=== PATIENT | female | born 1975 | race Caucasian/White ===

== ENCOUNTER → 2017-04-24 | Outpatient (CLI) | payer OTHER ==
[~2017-04-24] MED LIST: ACYC400 PO; AMIT25 PO; ANDROGEL1.25 GM TD; Crutch1 EACH MISC; DHEA PO; HYDACE10B PO; IRON150C PO; PREG75 PO; RXHYDACE PO; Zofran Odt4 MG PO
[2017-04-26 12:38] LABS: HPV Genotype 16 Not Detected (NOTDET); HPV Genotype 18 Not Detected (NOTDET)
[2017-04-30 18:58] LABS: HPV High Risk Other Not Detected (NOTDET)
== END | disposition home or self-care (01) ==
LOC: LAB 16:33
PROVIDERS: Obstetrics & Gynecology
DX: Z01.419 Encounter for gynecological examination (general) (routine) without abnormal findings (principal)
CPT/HCPCS: 87624; G0123

== ENCOUNTER 2017-08-12 05:52 | Day surgery (SDC) | payer OTHER ==
[~2017-08-12] VITALS: Ht 165.1 cm; Wt 79.8 kg
[~2017-08-12 05:52] MED LIST changes: -ANDROGEL1.25 GM TD; -DHEA PO; -IRON150C PO; -Zofran Odt4 MG PO
== END 2017-08-12 22:47 | disposition home or self-care (01) ==
LOC: ORSCMMR 05:52 → ORD 10:00 → ORSCMMR 10:00 → ORD 11:30 → ORSCMMR 22:47
PROVIDERS: Obstetrics & Gynecology
PROC: 0TSD0ZZ Reposition Urethra, Open Approach (ICD-10-PCS; principal; 2017-08-12 07:30)
DX: N39.3 Stress incontinence (female) (male) (principal)
CPT/HCPCS: C1771; J0171; J1100; J1885; J1956; J2250; J2405; J3010; J7120

== ENCOUNTER 2018-01-25 22:22 | Emergency (ER) | payer OTHER ==
[~2018-01-25] VITALS: Ht 165.1 cm; Wt 77.1 kg
[2018-01-25] MEDS ORDERED: DHEA PO (22:32)
[2018-01-25] MEDS ORDERED: IRON150C PO (22:32)
[2018-01-25] MEDS ORDERED: ANDROGEL1.25 GM TD (22:33)
[2018-01-25 22:58] LABS: BASOPHILS ABSOLUTE AUTO 0.06 K/mm3 (0.00-0.23); BASOPHILS PERCENT AUTO 1 % (0-2); EOSINOPHILS ABSOLUTE AUTO 0.43 K/mm3 (0.00-0.68); EOSINOPHILS PERCENT AUTO 4 % (0-6); Hematocrit 41.4 % (33.0-51.0); Hemoglobin 13.9 g/dL (11.5-16.0); IMMATURE GRAN ABSOLUTE AUTO 0.02 K/mm3 (0.00-0.10); IMMATURE GRAN PERCENT AUTO 0 % (0-1); LYMPHOCYTES ABSOLUTE AUTO 3.08 K/mm3 (0.84-5.20); LYMPHOCYTES PERCENT AUTO 31 % (21-46); MONOCYTES ABSOLUTE AUTO 0.85 K/mm3 (0.16-1.47); MONOCYTES PERCENT AUTO 9 % (4-13); Mean Corpuscular HGB 30.7 pg (26.0-34.0); Mean Corpuscular HGB Conc 33.6 g/dL (31.5-36.5); Mean Corpuscular Volume 91 fL (80-100); Mean Platelet Volume 10.3 fL (9.1-12.4); NEUTROPHILS ABSOLUTE AUTO 5.39 K/mm3 (1.96-9.15); NEUTROPHILS PERCENT AUTO 55 % (41-73); Platelet Count 222 K/mm3 (150-400); RDW Coefficient Variation 12.3 % (11.7-14.2); Red Blood Cell Count 4.53 M/mm3 (3.80-5.20); White Blood Cell Count 9.83 K/mm3 (4.00-11.30)
[2018-01-25 23:13] LABS: Alanine Aminotransfer (ALT/SGP 28 U/L (12-78); Albumin, Blood 3.6 g/dL (3.4-5.0); Alk Phos 71 U/L (50-136); Anion Gap 7 mmol/L (6-16); Aspartate Aminotrans (AST/SGOT 20 U/L (12-37); Bilirubin, Total 0.4 mg/dL (0.1-1.0); Blood Urea Nitrogen 20 mg/dL (8-24); Bun/Creatinine Ratio 22.1 (12.0-20.0); CO2, Blood 25 mmol/L (21-32); Calcium, Blood 8.5 mg/dL (8.5-10.1); Chloride, Blood 110 mmol/L (98-108); Globulin, Blood 3.5 g/dL (2.2-4.0); Glomerular Filtration Rate >60 (60-); Glucose, Blood 122 mg/dL (70-99); Potassium, Blood 3.8 mmol/L (3.5-5.5); Sodium, Blood 142 mmol/L (136-145); Total Protein, Blood 7.1 g/dL (6.4-8.2); Troponin I <0.015 ng/mL (0.000-0.040)
[2018-01-25 23:20] LABS: Source, Urine Clean Catch
[2018-01-25 23:27] LABS: Bilirubin, Urine Neg (Neg); Blood, Urine Neg (Neg); Glucose Qualitative, Urine Neg (Neg); Ketones, Urine 1+ (Neg); Leukocyte Esterase, Urine 1+ (Neg); Nitrite, Urine Neg (Neg); Protein, Urine 1+ (Neg); Specific Gravity, Urine 1.025 (1.003-1.022); Urobilinogen, Urine 1+ (Normal)
[2018-01-25 23:28] LABS: Appearance, Urine Hazy (Clear); Color, Urine Yellow (P-Yellow)
[2018-01-25 23:34] LABS: Bacteria Mod /hpf; Red Blood Cells, Urine Not Seen /hpf (0-2); Squamous Epithelial Cells Many /hpf (Few)
[2018-01-25 23:40] LABS: U Amphetamine Screen DETECTED; U Barbituate Screen Not Detected; U Benzodiazapine Screen Not Detected; U Buprenorphine Screen Not Detected; U Cannabinoids Screen Not Detected; U Cocaine Screen Not Detected; U Methadone Screen Not Detected; U Methamphetamine Screen DETECTED; U Opiates Screen Not Detected; U Oxycodone Screen Not Detected; U Phencyclidine Screen Not Detected; U Propoxyphene Screen Not Detected
[2018-01-25 23:48] LABS: Magnesium, Blood 2.1 mg/dL (1.6-2.4)
[2018-01-25 23:49] LABS: Thyroid Stimulating Hormone 2.6 uIU/mL (0.360-4.800)
[2018-01-26] MEDS ORDERED: Zofran Odt4 MG PO (00:05)
== END 2018-01-26 00:31 | disposition home or self-care (01) ==
LOC: ER 22:22
PROVIDERS: Emergency Medicine
DX: R07.89 Other chest pain (principal); R00.2 Palpitations; F15.90 Other stimulant use, unspecified, uncomplicated; Z79.899 Other long term (current) drug therapy
CPT/HCPCS: 36415; 71045; 80053; 81001; 83735; 84443; 84484; 85025; 87086; 93005; 93010; 94640; 96361; 96374; 99284-25; J2405; J7030

== ENCOUNTER → 2019-12-19 | Outpatient (CLI) | payer OTHER ==
[~2019-12-19] MED LIST changes: +ANDROGEL1.25 GM TD; +DHEA PO; +IRON150C PO; +Zofran Odt4 MG PO
== END | disposition home or self-care (01) ==
LOC: LAB SHORT 14:55 → LAB 14:55
DX: N39.0 Urinary tract infection, site not specified (principal)
CPT/HCPCS: 87077; 87086; 87186

== ENCOUNTER 2021-04-13 07:16 | Emergency (ER) | payer OTHER ==
[~2021-04-13] VITALS: Ht 165.1 cm; Wt 81.7 kg
[2021-04-13 08:59] LABS: BASOPHILS ABSOLUTE AUTO 0.04 K/mm3 (0.00-0.23); BASOPHILS PERCENT AUTO 0 % (0-2); EOSINOPHILS ABSOLUTE AUTO 0.31 K/mm3 (0.00-0.68); EOSINOPHILS PERCENT AUTO 3 % (0-6); Hematocrit 42.7 % (33.0-51.0); Hemoglobin 14.6 g/dL (11.5-16.0); IMMATURE GRAN ABSOLUTE AUTO 0.03 K/mm3 (0.00-0.10); IMMATURE GRAN PERCENT AUTO 0 % (0-1); LYMPHOCYTES ABSOLUTE AUTO 1.38 K/mm3 (0.84-5.20); LYMPHOCYTES PERCENT AUTO 12 % (21-46); MONOCYTES ABSOLUTE AUTO 0.94 K/mm3 (0.16-1.47); MONOCYTES PERCENT AUTO 8 % (4-13); Mean Corpuscular HGB 31.4 pg (26.0-34.0); Mean Corpuscular HGB Conc 34.2 g/dL (31.5-36.5); Mean Corpuscular Volume 92 fL (80-100); Mean Platelet Volume 10.5 fL (9.1-12.4); NEUTROPHILS ABSOLUTE AUTO 8.55 K/mm3 (1.96-9.15); NEUTROPHILS PERCENT AUTO 76 % (41-73); Platelet Count 197 K/mm3 (150-400); RDW Coefficient Variation 12.3 % (11.7-14.2); RDW Standard Deviation 42.2 fL (35.1-46.3); Red Blood Cell Count 4.65 M/mm3 (3.80-5.20); White Blood Cell Count 11.25 K/mm3 (4.00-11.30)
[2021-04-13 09:31] LABS: Albumin, Blood 3.2 g/dL (3.4-5.0); Albumin/Globulin Ratio 0.9 (0.8-1.8); Bilirubin, Total 0.4 mg/dL (0.1-1.0); Bun/Creatinine Ratio 18.5 (12.0-20.0); Calcium, Blood 9.5 mg/dL (8.5-10.1); Creatinine, Blood 1.35 mg/dL (0.40-1.00); Globulin, Blood 3.7 g/dL (2.2-4.0); Potassium, Blood 4.3 mmol/L (3.5-5.5); Total Protein, Blood 6.9 g/dL (6.4-8.2)
[2021-04-13 10:07] LABS: Source, Urine Clean Catch
[2021-04-13 10:46] LABS: Bilirubin, Urine Neg (Neg); Blood, Urine Neg (Neg); Glucose Qualitative, Urine Neg (Neg); Ketones, Urine Neg (Neg); Leukocyte Esterase, Urine 1+ (Neg); Nitrite, Urine Neg (Neg); Protein, Urine Neg (Neg); Urobilinogen, Urine NORM (Normal)
[2021-04-13 10:53] LABS: Appearance, Urine Clear (Clear); Bacteria Rare /hpf; Color, Urine Yellow (P-Yellow); Red Blood Cells, Urine Not Seen /hpf (0-2); Squamous Epithelial Cells Rare /hpf (Few); White Blood Cells, Urine 0-2 /hpf (0-5)
[2021-04-13] MEDS ORDERED: Flomax0.4 MG PO (11:22)
[2021-04-13] MEDS ORDERED: Percocet 5-3251 EACH PO (11:22)
[2021-04-13] MEDS ORDERED: IBUP600 PO (11:22)
[2021-04-13] MEDS ORDERED: ONDA4ODT MM (11:22)
== END 2021-04-13 11:35 | disposition home or self-care (01) ==
LOC: ER 07:16
PROVIDERS: Emergency Medicine
DX: N13.2 Hydronephrosis with renal and ureteral calculous obstruction (principal)
CPT/HCPCS: 36415; 74177; 80053; 81001; 81025; 83690; 85025; 87086; 96374; 96375; 99284-25; A9270; J1170; J1885; J2405; J7030; Q9967

== ENCOUNTER 2021-11-23 04:30 | Emergency (ER) | payer OTHER ==
[~2021-11-23] VITALS: Ht 165.1 cm; Wt 81.7 kg
[~2021-11-23 04:30] MED LIST changes: +CEFP200 PO; +Flomax0.4 MG PO; +IBUP600 PO; +ONDA4ODT MM; +Percocet 5-3251 EACH PO
[2021-11-23 06:50] LABS: BASOPHILS ABSOLUTE AUTO 0.01 K/mm3 (0.00-0.23); BASOPHILS PERCENT AUTO 0 % (0-2); EOSINOPHILS ABSOLUTE AUTO 0.02 K/mm3 (0.00-0.68); EOSINOPHILS PERCENT AUTO 0 % (0-6); Hematocrit 44.8 % (33.0-51.0); IMMATURE GRAN ABSOLUTE AUTO 0.03 K/mm3 (0.00-0.10); IMMATURE GRAN PERCENT AUTO 1 % (0-1); LYMPHOCYTES PERCENT AUTO 14 % (21-46); MONOCYTES ABSOLUTE AUTO 0.49 K/mm3 (0.16-1.47); MONOCYTES PERCENT AUTO 7 % (4-13); Mean Corpuscular HGB 30.4 pg (26.0-34.0); Mean Corpuscular HGB Conc 33.5 g/dL (31.5-36.5); Mean Corpuscular Volume 91 fL (80-100); Mean Platelet Volume 10.5 fL (9.1-12.4); NEUTROPHILS PERCENT AUTO 78 % (41-73); Platelet Count 144 K/mm3 (150-400); RDW Coefficient Variation 12.4 % (11.7-14.2); RDW Standard Deviation 40.8 fL (35.1-46.3); Red Blood Cell Count 4.94 M/mm3 (3.80-5.20); White Blood Cell Count 6.65 K/mm3 (4.00-11.30)
[2021-11-23 07:08] LABS: Albumin, Blood 2.4 g/dL (3.4-5.0); Albumin/Globulin Ratio 0.5 (0.8-1.8); Bilirubin, Total 0.4 mg/dL (0.1-1.0); Bun/Creatinine Ratio 9.3 (12.0-20.0); Calcium, Blood 8.6 mg/dL (8.5-10.1); Creatinine, Blood 0.97 mg/dL (0.40-1.00); Globulin, Blood 4.4 g/dL (2.2-4.0); Potassium, Blood 3.8 mmol/L (3.5-5.5); Total Protein, Blood 6.8 g/dL (6.4-8.2)
[2021-11-23 07:47] LABS: Source, Urine Clean Catch
[2021-11-23 07:51] LABS: Appearance, Urine Clear (Clear); Bilirubin, Urine Neg (Neg); Blood, Urine 4+ (Neg); Color, Urine Yellow (P-Yellow); Glucose Qualitative, Urine Neg (Neg); Ketones, Urine Neg (Neg); Leukocyte Esterase, Urine Neg (Neg); Nitrite, Urine Neg (Neg); Protein, Urine 3+ (Neg); Urobilinogen, Urine NORM (Normal)
[2021-11-23 07:58] LABS: Squamous Epithelial Cells Many /hpf (Few)
[2021-11-23 07:59] LABS: Bacteria Few /hpf
[2021-11-23 08:00] LABS: Mucus Mod (0-Heavy); Transitional Epithelial Cells Rare /hpf (0-Rare)
[2021-11-23] MEDS ORDERED: METO5A PO (08:32)
[2021-11-23] MEDS ORDERED: Protonix40 MG PO (08:32)
== END 2021-11-23 08:48 | disposition home or self-care (01) ==
LOC: ER 04:30
PROVIDERS: Emergency Medicine
DX: B34.9 Viral infection, unspecified (principal); Z79.899 Other long term (current) drug therapy
CPT/HCPCS: 36415; 80053; 81001; 85025; 96374; 96375; 99283-25; A9270; J1200; J1885; J2765; J7030

== ENCOUNTER 2022-06-19 14:36 | Emergency (ER) | payer OTHER ==
[~2022-06-19] VITALS: Ht 165.1 cm; Wt 81.7 kg
[~2022-06-19 14:36] MED LIST changes: +Bactrim Ds Tab1 EACH PO; +METO5A PO; +Protonix40 MG PO
[2022-06-19 15:13] LABS: BASOPHILS ABSOLUTE AUTO 0.06 K/mm3 (0.00-0.23); BASOPHILS PERCENT AUTO 1 % (0-2); EOSINOPHILS ABSOLUTE AUTO 0.32 K/mm3 (0.00-0.68); EOSINOPHILS PERCENT AUTO 3 % (0-6); Hematocrit 45.3 % (33.0-51.0); Hemoglobin 15.7 g/dL (11.5-16.0); IMMATURE GRAN ABSOLUTE AUTO 0.03 K/mm3 (0.00-0.10); IMMATURE GRAN PERCENT AUTO 0 % (0-1); LYMPHOCYTES ABSOLUTE AUTO 3.29 K/mm3 (0.84-5.20); LYMPHOCYTES PERCENT AUTO 27 % (21-46); MONOCYTES ABSOLUTE AUTO 0.95 K/mm3 (0.16-1.47); MONOCYTES PERCENT AUTO 8 % (4-13); Mean Corpuscular HGB 31.8 pg (26.0-34.0); Mean Corpuscular HGB Conc 34.7 g/dL (31.5-36.5); Mean Corpuscular Volume 92 fL (80-100); Mean Platelet Volume 10.8 fL (9.1-12.4); NEUTROPHILS ABSOLUTE AUTO 7.55 K/mm3 (1.96-9.15); NEUTROPHILS PERCENT AUTO 62 % (41-73); Platelet Count 185 K/mm3 (150-400); RDW Coefficient Variation 12.9 % (11.7-14.2); Red Blood Cell Count 4.94 M/mm3 (3.80-5.20)
[2022-06-19 15:41] LABS: Albumin, Blood 3.4 g/dL (3.4-5.0); Albumin/Globulin Ratio 0.9 (0.8-1.8); Bilirubin, Total 0.3 mg/dL (0.1-1.0); Bun/Creatinine Ratio 21.7 (12.0-20.0); Calcium, Blood 9.1 mg/dL (8.5-10.1); Creatinine, Blood 0.92 mg/dL (0.40-1.00); Globulin, Blood 3.6 g/dL (2.2-4.0)
[2022-06-19] MEDS ORDERED: Amlodipine Bes2.5 MG PO (20:05)
== END 2022-06-19 20:31 | disposition home or self-care (01) ==
LOC: ER 14:36
PROVIDERS: Student in an Organized Health Care Education/Training Program
DX: I10 Essential (primary) hypertension (principal); R07.89 Other chest pain; Z79.899 Other long term (current) drug therapy
CPT/HCPCS: 36415; 71046; 80053; 84484; 85025; 93005; 93010; 99284-25; A9270

== ENCOUNTER 2022-08-16 04:01 | Observation (INO) | payer OTHER ==
[~2022-08-16] VITALS: Ht 165.1 cm; Wt 81.7 kg
[~2022-08-16 04:01] MED LIST changes: +Amlodipine Bes2.5 MG PO
[2022-08-16 04:29] LABS: Source, Urine Voided
[2022-08-16 04:46] LABS: BASOPHILS ABSOLUTE AUTO 0.06 K/mm3 (0.00-0.23); BASOPHILS PERCENT AUTO 1 % (0-2); EOSINOPHILS ABSOLUTE AUTO 0.24 K/mm3 (0.00-0.68); EOSINOPHILS PERCENT AUTO 2 % (0-6); Hematocrit 45.6 % (33.0-51.0); Hemoglobin 15.6 g/dL (11.5-16.0); IMMATURE GRAN ABSOLUTE AUTO 0.02 K/mm3 (0.00-0.10); IMMATURE GRAN PERCENT AUTO 0 % (0-1); LYMPHOCYTES ABSOLUTE AUTO 3.91 K/mm3 (0.84-5.20); LYMPHOCYTES PERCENT AUTO 38 % (21-46); MONOCYTES ABSOLUTE AUTO 0.75 K/mm3 (0.16-1.47); MONOCYTES PERCENT AUTO 7 % (4-13); Mean Corpuscular HGB 30.6 pg (26.0-34.0); Mean Corpuscular HGB Conc 34.2 g/dL (31.5-36.5); Mean Corpuscular Volume 89 fL (80-100); Mean Platelet Volume 10.2 fL (9.1-12.4); NEUTROPHILS ABSOLUTE AUTO 5.46 K/mm3 (1.96-9.15); NEUTROPHILS PERCENT AUTO 52 % (41-73); Platelet Count 191 K/mm3 (150-400); RDW Coefficient Variation 12.2 % (11.7-14.2); RDW Standard Deviation 40.2 fL (35.1-46.3); White Blood Cell Count 10.44 K/mm3 (4.00-11.30)
[2022-08-16 04:48] LABS: Bilirubin, Urine Neg (Neg); Blood, Urine Neg (Neg); Glucose Qualitative, Urine Neg (Neg); Ketones, Urine Neg (Neg); Leukocyte Esterase, Urine 1+ (Neg); Nitrite, Urine Neg (Neg); Protein, Urine 1+ (Neg); Specific Gravity, Urine 1.025 (1.003-1.022); Urobilinogen, Urine NORM (Normal)
[2022-08-16] MEDS ORDERED: Ventolin/Prove6.7 GM INH (04:49)
[2022-08-16 05:10] LABS: Albumin, Blood 3.4 g/dL (3.4-5.0); Albumin/Globulin Ratio 0.7 (0.8-1.8); Bilirubin, Total 0.5 mg/dL (0.1-1.0); Bun/Creatinine Ratio 24.8 (12.0-20.0); Calcium, Blood 10.1 mg/dL (8.5-10.1); Creatinine, Blood 1.09 mg/dL (0.40-1.00); Globulin, Blood 4.6 g/dL (2.2-4.0); Potassium, Blood 4.1 mmol/L (3.5-5.5)
[2022-08-16 05:10] LABS: Appearance, Urine Hazy (Clear); Color, Urine Yellow (P-Yellow)
[2022-08-16 05:13] LABS: Red Blood Cells, Urine 0-2 /hpf (0-2); Squamous Epithelial Cells Mod /hpf (Few)
[2022-08-16 05:14] LABS: Bacteria Many /hpf
[2022-08-16] MEDS ORDERED: Lisinopril-Hct1 EAC4 PO (10:43)
[2022-08-16 10:45] VITALS: BP 89/72
[2022-08-16 10:55] VITALS: BP 96/74
[2022-08-16 15:49] VITALS: BP 102/75
[2022-08-16 19:08] VITALS: BP 108/90
[2022-08-17 04:37] VITALS: BP 101/63
[2022-08-17 05:32] LABS: BASOPHILS ABSOLUTE AUTO 0.04 K/mm3 (0.00-0.23); BASOPHILS PERCENT AUTO 1 % (0-2); EOSINOPHILS ABSOLUTE AUTO 0.23 K/mm3 (0.00-0.68); EOSINOPHILS PERCENT AUTO 3 % (0-6); Hematocrit 39.9 % (33.0-51.0); Hemoglobin 13.6 g/dL (11.5-16.0); IMMATURE GRAN ABSOLUTE AUTO 0.02 K/mm3 (0.00-0.10); IMMATURE GRAN PERCENT AUTO 0 % (0-1); LYMPHOCYTES PERCENT AUTO 55 % (21-46); MONOCYTES ABSOLUTE AUTO 0.53 K/mm3 (0.16-1.47); MONOCYTES PERCENT AUTO 7 % (4-13); Mean Corpuscular HGB 30.6 pg (26.0-34.0); Mean Corpuscular HGB Conc 34.1 g/dL (31.5-36.5); Mean Corpuscular Volume 90 fL (80-100); NEUTROPHILS ABSOLUTE AUTO 2.82 K/mm3 (1.96-9.15); NEUTROPHILS PERCENT AUTO 35 % (41-73); Platelet Count 162 K/mm3 (150-400); RDW Coefficient Variation 12.3 % (11.7-14.2); RDW Standard Deviation 40.3 fL (35.1-46.3); Red Blood Cell Count 4.44 M/mm3 (3.80-5.20); White Blood Cell Count 8.04 K/mm3 (4.00-11.30)
[2022-08-17 05:54] LABS: Albumin, Blood 2.7 g/dL (3.4-5.0); Albumin/Globulin Ratio 0.8 (0.8-1.8); Bilirubin, Total 0.6 mg/dL (0.1-1.0); Bun/Creatinine Ratio 17.8 (12.0-20.0); Calcium, Blood 8.7 mg/dL (8.5-10.1); Creatinine, Blood 1.01 mg/dL (0.40-1.00); Globulin, Blood 3.4 g/dL (2.2-4.0); Potassium, Blood 4.5 mmol/L (3.5-5.5); Total Protein, Blood 6.1 g/dL (6.4-8.2)
[2022-08-17 07:29] VITALS: BP 91/74
[2022-08-17 10:20] VITALS: BP 97/71
[2022-08-17 14:00] VITALS: BP 99/81
[2022-08-17 17:50] VITALS: BP 118/83
[2022-08-17 19:30] VITALS: BP 94/61
[2022-08-18 04:16] VITALS: BP 99/77
[2022-08-18 05:11] LABS: BASOPHILS ABSOLUTE AUTO 0.04 K/mm3 (0.00-0.23); BASOPHILS PERCENT AUTO 1 % (0-2); EOSINOPHILS ABSOLUTE AUTO 0.22 K/mm3 (0.00-0.68); EOSINOPHILS PERCENT AUTO 3 % (0-6); Hematocrit 40.6 % (33.0-51.0); Hemoglobin 13.9 g/dL (11.5-16.0); IMMATURE GRAN ABSOLUTE AUTO 0.02 K/mm3 (0.00-0.10); IMMATURE GRAN PERCENT AUTO 0 % (0-1); LYMPHOCYTES PERCENT AUTO 51 % (21-46); MONOCYTES ABSOLUTE AUTO 0.65 K/mm3 (0.16-1.47); MONOCYTES PERCENT AUTO 8 % (4-13); Mean Corpuscular HGB 31.4 pg (26.0-34.0); Mean Corpuscular HGB Conc 34.2 g/dL (31.5-36.5); Mean Corpuscular Volume 92 fL (80-100); NEUTROPHILS PERCENT AUTO 38 % (41-73); Platelet Count 150 K/mm3 (150-400); RDW Coefficient Variation 12.3 % (11.7-14.2); RDW Standard Deviation 41.6 fL (35.1-46.3); Red Blood Cell Count 4.42 M/mm3 (3.80-5.20); White Blood Cell Count 8.43 K/mm3 (4.00-11.30)
[2022-08-18 05:40] LABS: Bun/Creatinine Ratio 20.1 (12.0-20.0); Calcium, Blood 8.6 mg/dL (8.5-10.1); Creatinine, Blood 1.34 mg/dL (0.40-1.00); Potassium, Blood 4.6 mmol/L (3.5-5.5)
[2022-08-18 07:25] VITALS: BP 94/78
[2022-08-18 14:08] VITALS: BP 135/83
[2022-08-18] MEDS ORDERED: Acetaminophen325 M1 PO (15:00)
[2022-08-18] MEDS ORDERED: LEVO750 PO (15:01)
[2022-08-18] MEDS ORDERED: VISBIOME 112.51 EACH PO (15:02)
== END 2022-08-18 16:35 | disposition home or self-care (01) ==
LOC: ER 04:01 → SURS 04:02 → ER 09:23 → SURS 10:48 → ER 12:23 → SURS 12:23
PROVIDERS: Emergency Medicine; ADMIT Internal Medicine
DX: K81.0 Acute cholecystitis (principal); R82.71 Bacteriuria; I12.9 Hypertensive chronic kidney disease with stage 1 through stage 4 chronic kidney disease, or unspecified chronic kidney disease; N18.2 Chronic kidney disease, stage 2 (mild); Z87.442 Personal history of urinary calculi; Z79.899 Other long term (current) drug therapy
CPT/HCPCS: 36415; 74177; 76705; 78226; 80048; 80053; 81001; 83690; 84484; 84703; 85025; 87040; 87077; 87086; 87186; 93005; 93010; 94760; 96361; 96374-59; 96375; 96376; 99285-25; A9270; A9537; G0378; J1170; J1956; J2270; J2405; J7030; Q9967

== ENCOUNTER 2022-10-01 17:21 | Emergency (ER) | payer OTHER ==
[~2022-10-01] VITALS: Ht 165.1 cm; Wt 81.7 kg
[~2022-10-01 17:21] MED LIST changes: +Acetaminophen325 M1 PO; +LEVO750 PO; +Lisinopril-Hct1 EAC4 PO; +VISBIOME 112.51 EACH PO; +Ventolin/Prove6.7 GM INH
[2022-10-02 00:54] VITALS: BP 102/64
[2022-10-02] MEDS ORDERED: Prinivil5 MG PO (00:57)
== END 2022-10-02 01:05 | disposition home or self-care (01) ==
LOC: ER 17:21
DX: I11.0 Hypertensive heart disease with heart failure (principal); I50.9 Heart failure, unspecified
CPT/HCPCS: 71260; 84484; 93005; 93010; 96374-59; 99285-25; A9270; J1940; Q9967

== ENCOUNTER 2022-12-30 01:05 | Emergency (ER) | payer OTHER ==
[~2022-12-30] VITALS: Ht 165.1 cm; Wt 77.1 kg
[~2022-12-30 01:05] MED LIST changes: +Prinivil5 MG PO
[2022-12-30] MEDS ORDERED: KLOR-CON 1010 ME9 PO (02:13)
[2022-12-30] MEDS ORDERED: FUROSEMIDE20 MG PO (02:13)
[2022-12-30 05:25] LABS: BASOPHILS ABSOLUTE AUTO 0.06 K/mm3 (0.00-0.23); BASOPHILS PERCENT AUTO 1 % (0-2); EOSINOPHILS ABSOLUTE AUTO 0.42 K/mm3 (0.00-0.68); EOSINOPHILS PERCENT AUTO 5 % (0-6); Hematocrit 42.9 % (33.0-51.0); Hemoglobin 14.8 g/dL (11.5-16.0); IMMATURE GRAN ABSOLUTE AUTO 0.03 K/mm3 (0.00-0.10); IMMATURE GRAN PERCENT AUTO 0 % (0-1); LYMPHOCYTES ABSOLUTE AUTO 4.07 K/mm3 (0.84-5.20); LYMPHOCYTES PERCENT AUTO 45 % (21-46); MONOCYTES ABSOLUTE AUTO 0.68 K/mm3 (0.16-1.47); MONOCYTES PERCENT AUTO 8 % (4-13); Mean Corpuscular HGB 31.8 pg (26.0-34.0); Mean Corpuscular HGB Conc 34.5 g/dL (31.5-36.5); Mean Corpuscular Volume 92 fL (80-100); Mean Platelet Volume 11.1 fL (9.1-12.4); NEUTROPHILS ABSOLUTE AUTO 3.82 K/mm3 (1.96-9.15); NEUTROPHILS PERCENT AUTO 42 % (41-73); Platelet Count 179 K/mm3 (150-400); RDW Coefficient Variation 14.5 % (11.7-14.2); RDW Standard Deviation 48.8 fL (35.1-46.3); Red Blood Cell Count 4.65 M/mm3 (3.80-5.20); White Blood Cell Count 9.08 K/mm3 (4.00-11.30)
[2022-12-30 05:36] LABS: Albumin, Blood 3.3 g/dL (3.4-5.0); Albumin/Globulin Ratio 0.9 (0.8-1.8); Bilirubin, Total 0.3 mg/dL (0.1-1.0); Bun/Creatinine Ratio 21.8 (12.0-20.0); Calcium, Blood 8.9 mg/dL (8.5-10.1); Creatinine, Blood 1.01 mg/dL (0.40-1.00); Globulin, Blood 3.8 g/dL (2.2-4.0); Potassium, Blood 4.3 mmol/L (3.5-5.5); Total Protein, Blood 7.1 g/dL (6.4-8.2)
[2022-12-30 06:02] VITALS: BP 97/61
== END 2022-12-30 06:02 | disposition home or self-care (01) ==
LOC: ER 01:05
PROVIDERS: Student in an Organized Health Care Education/Training Program
DX: R42 Dizziness and giddiness (principal); Z79.899 Other long term (current) drug therapy; I10 Essential (primary) hypertension
CPT/HCPCS: 36415; 71045; 80053; 83880; 85025; 93005; 93010; 99285-25

== ENCOUNTER → 2024-01-28 | Outpatient (CLI) | payer OTHER ==
[~2024-01-28] MED LIST changes: +FURO20 PO; +FUROSEMIDE20 MG PO; +KLOR-CON 1010 ME9 PO; +SERT25 PO
== END ==
LOC: LAB 17:02 → LAB SHORT 17:02
DX: J02.9 Acute pharyngitis, unspecified (principal)
CPT/HCPCS: 87081; 87147

== ENCOUNTER 2024-01-29 15:19 | Emergency (ER) | payer OTHER ==
[~2024-01-29] VITALS: Ht 165.1 cm; Wt 77.1 kg
[2024-01-29 15:25] VITALS: BP 146/114
[2024-01-29 16:19] LABS: BASOPHILS ABSOLUTE AUTO 0.05 K/mm3 (0.00-0.23); BASOPHILS PERCENT AUTO 0 % (0-2); EOSINOPHILS ABSOLUTE AUTO 0.27 K/mm3 (0.00-0.68); EOSINOPHILS PERCENT AUTO 2 % (0-6); Hematocrit 44.1 % (33.0-51.0); Hemoglobin 15.3 g/dL (11.5-16.0); IMMATURE GRAN ABSOLUTE AUTO 0.04 K/mm3 (0.00-0.10); IMMATURE GRAN PERCENT AUTO 0 % (0-1); LYMPHOCYTES ABSOLUTE AUTO 3.56 K/mm3 (0.84-5.20); LYMPHOCYTES PERCENT AUTO 27 % (21-46); MONOCYTES ABSOLUTE AUTO 0.95 K/mm3 (0.16-1.47); MONOCYTES PERCENT AUTO 7 % (4-13); Mean Corpuscular HGB 31.8 pg (26.0-34.0); Mean Corpuscular HGB Conc 34.7 g/dL (31.5-36.5); Mean Corpuscular Volume 92 fL (80-100); Mean Platelet Volume 10.8 fL (9.1-12.4); NEUTROPHILS ABSOLUTE AUTO 8.12 K/mm3 (1.96-9.15); NEUTROPHILS PERCENT AUTO 63 % (41-73); Platelet Count 180 K/mm3 (150-400); RDW Coefficient Variation 12.3 % (11.7-14.2); RDW Standard Deviation 41.1 fL (35.1-46.3); Red Blood Cell Count 4.81 M/mm3 (3.80-5.20); White Blood Cell Count 12.99 K/mm3 (4.00-11.30)
[2024-01-29 16:39] LABS: Albumin, Blood 3.1 g/dL (3.4-5.0); Albumin/Globulin Ratio 0.8 (0.8-1.8); Bilirubin, Total 0.6 mg/dL (0.1-1.0); Bun/Creatinine Ratio 17.9 (12.0-20.0); Calcium, Blood 9.8 mg/dL (8.5-10.1); Creatinine, Blood 1.23 mg/dL (0.40-1.00); Globulin, Blood 3.9 g/dL (2.2-4.0)
== END 2024-01-29 19:54 | disposition left against medical advice (07) ==
LOC: ER 15:19
PROVIDERS: Physician Assistant
DX: R06.02 Shortness of breath (principal); Z53.29 Procedure and treatment not carried out because of patient's decision for other reasons
CPT/HCPCS: 80053; 83690; 83880; 84484; 85025; 93005; 93010; 99282-25

== ENCOUNTER 2024-02-03 23:48 | Emergency (ER) | payer OTHER ==
[~2024-02-03] VITALS: Ht 170.2 cm; Wt 79.4 kg
[2024-02-04 00:31] LABS: BASOPHILS ABSOLUTE AUTO 0.07 K/mm3 (0.00-0.23); BASOPHILS PERCENT AUTO 1 % (0-2); EOSINOPHILS ABSOLUTE AUTO 0.21 K/mm3 (0.00-0.68); EOSINOPHILS PERCENT AUTO 2 % (0-6); Hemoglobin 16.5 g/dL (11.5-16.0); IMMATURE GRAN ABSOLUTE AUTO 0.03 K/mm3 (0.00-0.10); IMMATURE GRAN PERCENT AUTO 0 % (0-1); LYMPHOCYTES ABSOLUTE AUTO 4.44 K/mm3 (0.84-5.20); LYMPHOCYTES PERCENT AUTO 36 % (21-46); MONOCYTES PERCENT AUTO 6 % (4-13); Mean Corpuscular HGB Conc 35.1 g/dL (31.5-36.5); Mean Corpuscular Volume 91 fL (80-100); Mean Platelet Volume 10.7 fL (9.1-12.4); NEUTROPHILS ABSOLUTE AUTO 6.96 K/mm3 (1.96-9.15); NEUTROPHILS PERCENT AUTO 56 % (41-73); Platelet Count 240 K/mm3 (150-400); RDW Coefficient Variation 12.8 % (11.7-14.2); RDW Standard Deviation 42.5 fL (35.1-46.3); Red Blood Cell Count 5.15 M/mm3 (3.80-5.20); White Blood Cell Count 12.41 K/mm3 (4.00-11.30)
[2024-02-04 00:49] LABS: Albumin, Blood 3.6 g/dL (3.4-5.0); Albumin/Globulin Ratio 0.8 (0.8-1.8); Bilirubin, Total 0.6 mg/dL (0.1-1.0); Bun/Creatinine Ratio 23.9 (12.0-20.0); Calcium, Blood 9.6 mg/dL (8.5-10.1); Creatinine, Blood 1.34 mg/dL (0.40-1.00); Globulin, Blood 4.7 g/dL (2.2-4.0); Potassium, Blood 4.8 mmol/L (3.5-5.5); Total Protein, Blood 8.3 g/dL (6.4-8.2)
[2024-02-04 06:47] VITALS: BP 144/116
== END 2024-02-04 06:48 | disposition home or self-care (01) ==
LOC: ER 23:48
PROVIDERS: Physician Assistant
DX: R06.02 Shortness of breath (principal); I11.0 Hypertensive heart disease with heart failure; I50.9 Heart failure, unspecified; Z79.899 Other long term (current) drug therapy
CPT/HCPCS: 71046; 80053; 85025; 85379; 93005; 93010; 99283-25

== ENCOUNTER 2024-04-15 10:28 | Emergency (ER) | payer SELFPAY ==
[~2024-04-15] VITALS: Ht 165.1 cm; Wt 77.1 kg
[2024-04-15 11:45] LABS: BASOPHILS ABSOLUTE AUTO 0.05 K/mm3 (0.00-0.23); BASOPHILS PERCENT AUTO 1 % (0-2); EOSINOPHILS ABSOLUTE AUTO 0.17 K/mm3 (0.00-0.68); EOSINOPHILS PERCENT AUTO 2 % (0-6); Hematocrit 45.7 % (33.0-51.0); Hemoglobin 15.3 g/dL (11.5-16.0); IMMATURE GRAN ABSOLUTE AUTO 0.03 K/mm3 (0.00-0.10); IMMATURE GRAN PERCENT AUTO 0 % (0-1); LYMPHOCYTES PERCENT AUTO 29 % (21-46); MONOCYTES PERCENT AUTO 8 % (4-13); Mean Corpuscular HGB 31.4 pg (26.0-34.0); Mean Corpuscular HGB Conc 33.5 g/dL (31.5-36.5); Mean Corpuscular Volume 94 fL (80-100); NEUTROPHILS ABSOLUTE AUTO 5.08 K/mm3 (1.96-9.15); NEUTROPHILS PERCENT AUTO 60 % (41-73); Platelet Count 191 K/mm3 (150-400); RDW Coefficient Variation 13.2 % (11.7-14.2); RDW Standard Deviation 45.6 fL (35.1-46.3); Red Blood Cell Count 4.87 M/mm3 (3.80-5.20); White Blood Cell Count 8.43 K/mm3 (4.00-11.30)
[2024-04-15 11:58] LABS: Albumin, Blood 3.1 g/dL (3.4-5.0); Albumin/Globulin Ratio 0.8 (0.8-1.8); Bilirubin, Total 1.3 mg/dL (0.1-1.0); Bun/Creatinine Ratio 23.6 (12.0-20.0); Calcium, Blood 9.2 mg/dL (8.5-10.1); Creatinine, Blood 1.1 mg/dL (0.40-1.00); Globulin, Blood 3.8 g/dL (2.2-4.0); Total Protein, Blood 6.9 g/dL (6.4-8.2)
[2024-04-15] MEDS ORDERED: Furosemide 10 MG / ML 2ML Vial IV ONE (12:50)
[2024-04-15] MEDS ORDERED: FURO20 PO (13:01)
[2024-04-15 13:50] VITALS: BP 156/94
== END 2024-04-15 13:51 | disposition home or self-care (01) ==
LOC: ER 10:28
PROVIDERS: Physician Assistant
DX: R06.09 Other forms of dyspnea (principal); I13.0 Hypertensive heart and chronic kidney disease with heart failure and stage 1 through stage 4 chronic kidney disease, or unspecified chronic kidney disease; I50.30 Unspecified diastolic (congestive) heart failure; I27.20 Pulmonary hypertension, unspecified; N18.2 Chronic kidney disease, stage 2 (mild); Z79.899 Other long term (current) drug therapy
CPT/HCPCS: 71046; 80053; 83880; 84484; 85025; 96374; 99285-25; J1940

== ENCOUNTER 2024-04-25 03:24 | Inpatient (IN) | payer SELFPAY ==
[2024-04-25] VITALS (23 sets, daily range): BP systolic 82–135; BP diastolic 55–108
[~2024-04-25] VITALS: Ht 165.1 cm; Wt 80.0 kg
[2024-04-25 04:00] LABS: Hematocrit 47.5 % (33.0-51.0); Mean Corpuscular HGB 30.9 pg (26.0-34.0); Mean Corpuscular HGB Conc 33.7 g/dL (31.5-36.5); Mean Corpuscular Volume 92 fL (80-100); Mean Platelet Volume 10.8 fL (9.1-12.4); Platelet Count 171 K/mm3 (150-400); RDW Coefficient Variation 13.2 % (11.7-14.2); RDW Standard Deviation 44.6 fL (35.1-46.3); Red Blood Cell Count 5.18 M/mm3 (3.80-5.20); White Blood Cell Count 10.41 K/mm3 (4.00-11.30)
[2024-04-25 04:23] LABS: Albumin/Globulin Ratio 0.8 (0.8-1.8); Bilirubin, Total 0.7 mg/dL (0.1-1.0); Bun/Creatinine Ratio 21.5 (12.0-20.0); Calcium, Blood 9.2 mg/dL (8.5-10.1); Creatinine, Blood 1.44 mg/dL (0.40-1.00); Potassium, Blood 4.1 mmol/L (3.5-5.5)
[2024-04-25 04:24] LABS: BASOPHILS PERCENT MAN 0 % (0-2); EOSINOPHILS PERCENT MAN 1 % (0-6); LYMPHOCYTES % ATYPICAL MANUAL 1 % (0-0); LYMPHOCYTES ABSOLUTE MAN 4.78 K/mm3 (0.84-5.20); LYMPHOCYTES PERCENT MAN 45 % (21-46); MONOCYTES ABSOLUTE MAN 0.83 K/mm3 (0.16-1.47); MONOCYTES PERCENT MAN 8 % (4-13); NEUTROPHILS ABSOLUTE MAN 4.68 K/mm3 (1.96-9.15); SEG NEUTROPHILS PERCENT MAN 45 % (41-73); TOTAL CELLS COUNTED 100
[2024-04-25] MEDS ORDERED: Labetalol HCL 100 MG TAB PO ONE (08:50)
[2024-04-25] MEDS ORDERED: LORazepam 2 MG/ML 1ML Injection ONE (10:22)
[2024-04-25] MEDS ORDERED: NS 250 ML IV SCH (10:25)
[2024-04-25] MEDS ORDERED: NS 1,000 ML IV ONE (10:27)
[2024-04-25] MEDS ORDERED: Ondansetron HCl 2 MG / ML 2ML Vial IV PRN (10:30)
[2024-04-25] MEDS ORDERED: FLU VACC TS2024-25(6MOS UP)/PF 45 MCG/0.5 ML SYRINGE IM SCH (10:30)
[2024-04-25] MEDS ORDERED: LORazepam 2 MG/ML 1ML Injection IV ONE ×2 (11:00→12:00)
[2024-04-25] MEDS ORDERED: LORazepam 2 MG/ML 1ML Injection IV STA (12:36)
[2024-04-25] MEDS ORDERED: Morphine Sulfate 4 MG/1 ML Injection ONE (12:41)
[2024-04-25] MEDS ORDERED: Morphine Sulfate 4 MG/1 ML Injection IV ONE (12:45)
[2024-04-25] MEDS ORDERED: LORazepam 2 MG/ML 1ML Injection IV PRN (13:00)
[2024-04-25] MEDS ORDERED: dexmedeTOMIDine 100 ML IV SCH (13:00)
[2024-04-25] MEDS ORDERED: Sildenafil Citrate 20 MG Tab PO SCH (14:46)
[2024-04-25] MEDS ORDERED: Morphine Sulfate 4 MG/1 ML Injection IV PRN (18:40)
[2024-04-25 20:25] LABS: Base Excess Venous -9.5 mmol/L; Bicarbonate Venous 17.1 mmol/L (24.0-30.0); PCO2 Venous 37.3 mmHg (38-42); pH Blood Venous 7.28 (7.34-7.37)
[2024-04-25 20:26] LABS: BASOPHILS ABSOLUTE AUTO 0.07 K/mm3 (0.00-0.23); BASOPHILS PERCENT AUTO 1 % (0-2); EOSINOPHILS ABSOLUTE AUTO 0.09 K/mm3 (0.00-0.68); EOSINOPHILS PERCENT AUTO 1 % (0-6); Hemoglobin 18.6 g/dL (11.5-16.0); IMMATURE GRAN ABSOLUTE AUTO 0.08 K/mm3 (0.00-0.10); IMMATURE GRAN PERCENT AUTO 1 % (0-1); LYMPHOCYTES ABSOLUTE AUTO 3.48 K/mm3 (0.84-5.20); LYMPHOCYTES PERCENT AUTO 33 % (21-46); MONOCYTES ABSOLUTE AUTO 0.76 K/mm3 (0.16-1.47); MONOCYTES PERCENT AUTO 7 % (4-13); Mean Corpuscular HGB 30.8 pg (26.0-34.0); Mean Corpuscular HGB Conc 33.3 g/dL (31.5-36.5); Mean Corpuscular Volume 93 fL (80-100); NEUTROPHILS ABSOLUTE AUTO 6.11 K/mm3 (1.96-9.15); NEUTROPHILS PERCENT AUTO 58 % (41-73); Platelet Count 112 K/mm3 (150-400); RDW Coefficient Variation 13.4 % (11.7-14.2); RDW Standard Deviation 45.5 fL (35.1-46.3); Red Blood Cell Count 6.03 M/mm3 (3.80-5.20); White Blood Cell Count 10.59 K/mm3 (4.00-11.30)
[2024-04-25 20:28] LABS: Hematocrit 55.8 % (33.0-51.0)
[2024-04-25 22:02] LABS: Albumin, Blood 2.9 g/dL (3.4-5.0); Albumin/Globulin Ratio 0.7 (0.8-1.8); Bilirubin, Total 1.9 mg/dL (0.1-1.0); Bun/Creatinine Ratio 22.3 (12.0-20.0); Calcium, Blood 9.2 mg/dL (8.5-10.1); Creatinine, Blood 1.75 mg/dL (0.40-1.00); Potassium, Blood 4.7 mmol/L (3.5-5.5); Total Protein, Blood 6.9 g/dL (6.4-8.2)
[2024-04-25] MEDS ORDERED: Furosemide 10 MG / ML 2ML Vial IV ONE (23:00)
[2024-04-26] VITALS (18 sets, daily range): BP systolic 109–163; BP diastolic 82–113
[2024-04-26 04:55] LABS: Base Excess Venous -1.4 mmol/L; Bicarbonate Venous 21.9 mmol/L (24.0-30.0); PCO2 Venous 44.5 mmHg (38-42); pH Blood Venous 7.35 (7.34-7.37)
[2024-04-26 05:15] LABS: Bun/Creatinine Ratio 23.6 (12.0-20.0); Creatinine, Blood 1.57 mg/dL (0.40-1.00)
[2024-04-26] MEDS ORDERED: Furosemide 10 MG / ML 2ML Vial IV ONE (05:25)
[2024-04-26 05:48] LABS: U Amphetamine Screen DETECTED; U Barbituate Screen Not Detected; U Benzodiazapine Screen DETECTED; U Buprenorphine Screen Not Detected; U Cannabinoids Screen Not Detected; U Cocaine Screen Not Detected; U Methadone Screen Not Detected; U Methamphetamine Screen DETECTED; U Opiates Screen DETECTED; U Phencyclidine Screen Not Detected
[2024-04-26 05:49] LABS: U Oxycodone Screen Not Detected
[2024-04-26] MEDS ORDERED: Furosemide 10 MG/ML 4ML Vial IV ONE (08:45)
[2024-04-26] MEDS ORDERED: Enoxaparin 40 MG/0.4 ML SYR SC SCH (09:00)
[2024-04-26] MEDS ORDERED: Furosemide 40 MG Tab PO SCH (12:00)
[2024-04-26] MEDS ORDERED: Metoprolol Succinate 25 MG TABCR PO SCH (12:00)
[2024-04-27] MEDS ORDERED: HyDROXyzine HCl 25 MG Tab PO PRN (00:50)
[2024-04-27 05:23] VITALS: BP 131/86
[2024-04-27 05:39] LABS: Bun/Creatinine Ratio 33.1 (12.0-20.0); Calcium, Blood 9.3 mg/dL (8.5-10.1); Creatinine, Blood 1.3 mg/dL (0.40-1.00); Potassium, Blood 3.6 mmol/L (3.5-5.5)
[2024-04-27] MEDS ORDERED: Potassium Chloride 20 MEQ TabCR PO ONE (07:45)
[2024-04-27 07:58] VITALS: BP 143/100
[2024-04-27] MEDS ORDERED: Sertraline HCl 50 MG Tab PO SCH (09:00)
[2024-04-27] MEDS ORDERED: Losartan Potassium 25 MG Tab PO SCH (09:00)
[2024-04-27] MEDS ORDERED: Empagliflozin 10 MG TAB PO SCH (09:00)
[2024-04-27] MEDS ORDERED: FURO40 PO (11:38)
[2024-04-27] MEDS ORDERED: JARDIANCE10 MG PO (11:39)
[2024-04-27] MEDS ORDERED: HYDHCL25 PO (11:40)
[2024-04-27] MEDS ORDERED: LOSA25 PO (11:40)
[2024-04-27] MEDS ORDERED: METO25ER PO (11:40)
[2024-04-27] MEDS ORDERED: REVATIO20 MG PO (11:41)
[2024-04-27] MEDS ORDERED: POTA10T PO (11:41)
== END 2024-04-27 13:45 | disposition home or self-care (01) | DRG 314 ==
LOC: ER 03:24 → MEDS 03:25 → ICUE 13:04 → MEDS 04-26 17:06
PROVIDERS: Emergency Medicine; Nurse Practitioner Acute Care; Student in an Organized Health Care Education/Training Program; ADMIT Internal Medicine
DX: I27.20 Pulmonary hypertension, unspecified (principal); G92.8 Other toxic encephalopathy; I50.31 Acute diastolic (congestive) heart failure; J96.01 Acute respiratory failure with hypoxia; I13.0 Hypertensive heart and chronic kidney disease with heart failure and stage 1 through stage 4 chronic kidney disease, or unspecified chronic kidney disease; N18.30 Chronic kidney disease, stage 3 unspecified; I16.0 Hypertensive urgency; G47.33 Obstructive sleep apnea (adult) (pediatric); F41.9 Anxiety disorder, unspecified; F15.10 Other stimulant abuse, uncomplicated
CPT/HCPCS: 36415; 71046; 71260; 74176; 80048; 80053; 82803; 83605; 83690; 83880; 84484; 85025; 85379; 93005; 93010; 96361; 96372; 96374-59; 96375; 96376; 96376-59; 99285-25; A9270; C1751; C8929; G0378; J1650; J1940; J2060; J2270; J7030; Q9957; Q9967

== ENCOUNTER → 2024-09-10 | Outpatient (CLI) | payer OTHER ==
[~2024-09-10] MED LIST changes: +FURO40 PO; +HYDHCL25 PO; +JARDIANCE10 MG PO; +LOSA25 PO; +METO25ER PO; +POTA10T PO; +REVATIO20 MG PO
[2024-09-10 18:44] LABS: Protein, Urine Quantitative 6.2 mg/dL (0.0-11.9)
[2024-09-10 18:52] LABS: Creatinine Urine 41.9 mg/dL (27.00-270.00); Microalbumin, Urine Quant. 7.45 mg/L (0.000-20.000)
== END | disposition home or self-care (01) ==
LOC: LAB SHORT 14:49 → LAB 14:49 → LAB FUT 09-08 09:15
PROVIDERS: Internal Medicine Nephrology
DX: N18.2 Chronic kidney disease, stage 2 (mild) (principal); D63.1 Anemia in chronic kidney disease; N25.81 Secondary hyperparathyroidism of renal origin; E55.9 Vitamin D deficiency, unspecified; E78.00 Pure hypercholesterolemia, unspecified; R76.9 Abnormal immunological finding in serum, unspecified; R94.5 Abnormal results of liver function studies; R94.6 Abnormal results of thyroid function studies; D51.8 Other vitamin B12 deficiency anemias; D52.8 Other folate deficiency anemias; D50.9 Iron deficiency anemia, unspecified
CPT/HCPCS: 81050; 82043; 82570; 84156

== ENCOUNTER 2025-03-04 20:49 | Emergency (ER) | payer OTHER ==
[~2025-03-04] VITALS: Ht 165.1 cm; Wt 81.7 kg
[2025-03-04 22:20] LABS: BASOPHILS ABSOLUTE AUTO 0.06 K/mm3 (0.00-0.23); BASOPHILS PERCENT AUTO 1 % (0-2); EOSINOPHILS ABSOLUTE AUTO 0.25 K/mm3 (0.00-0.68); EOSINOPHILS PERCENT AUTO 2 % (0-6); Hematocrit 48.7 % (33.0-51.0); Hemoglobin 16.2 g/dL (11.5-16.0); IMMATURE GRAN ABSOLUTE AUTO 0.03 K/mm3 (0.00-0.10); IMMATURE GRAN PERCENT AUTO 0 % (0-1); LYMPHOCYTES ABSOLUTE AUTO 3.37 K/mm3 (0.84-5.20); LYMPHOCYTES PERCENT AUTO 30 % (21-46); MONOCYTES ABSOLUTE AUTO 0.79 K/mm3 (0.16-1.47); MONOCYTES PERCENT AUTO 7 % (4-13); Mean Corpuscular HGB Conc 33.3 g/dL (31.5-36.5); Mean Corpuscular Volume 94 fL (80-100); NEUTROPHILS ABSOLUTE AUTO 6.81 K/mm3 (1.96-9.15); NEUTROPHILS PERCENT AUTO 60 % (41-73); NRBC ABSOLUTE 0.00 K/mm3 (0.00-0.02); NRBC Auto 0.0 /100 WBC (0.0-0.2); Platelet Count 165 K/mm3 (150-400); RDW Coefficient Variation 13.2 % (11.7-14.2); RDW Standard Deviation 45.7 fL (35.1-46.3)
[2025-03-04 22:39] LABS: Alanine Aminotransfer (ALT/SGP 49 U/L (12-78); Albumin, Blood 3.3 g/dL (3.4-5.0); Albumin/Globulin Ratio 1.0 (0.8-1.8); Anion Gap 11 mmol/L (3-11); Aspartate Aminotrans (AST/SGOT 33 U/L (12-37); Beta HCG, Quantitative, Serum <1 mIU/mL (0-3); Bilirubin, Total 0.6 mg/dL (0.1-1.0); Blood Urea Nitrogen 27 mg/dL (8-24); CO2, Blood 23 mmol/L (21-32); Calcium, Blood 9.4 mg/dL (8.5-10.1); Chloride, Blood 109 mmol/L (98-108); Creatinine, Blood 1.40 mg/dL (0.40-1.00); Globulin, Blood 3.4 g/dL (2.2-4.0); Glucose, Blood 107 mg/dL (70-99); Potassium, Blood 4.2 mmol/L (3.5-5.5); Sodium, Blood 139 mmol/L (136-145); Total Protein, Blood 6.7 g/dL (6.4-8.2)
[2025-03-04 23:15] VITALS: BP 133/106
[2025-03-04] MEDS ORDERED: Lidocaine 4% 1 Patch TOP ONE (23:15)
[2025-03-04] MEDS ORDERED: ASPERFLEX1 EACH TOP (23:16)
== END 2025-03-04 23:26 | disposition home or self-care (01) ==
LOC: ER 20:49
PROVIDERS: Student in an Organized Health Care Education/Training Program
DX: R07.89 Other chest pain (principal); I13.0 Hypertensive heart and chronic kidney disease with heart failure and stage 1 through stage 4 chronic kidney disease, or unspecified chronic kidney disease; I12.9 Hypertensive chronic kidney disease with stage 1 through stage 4 chronic kidney disease, or unspecified chronic kidney disease; N18.2 Chronic kidney disease, stage 2 (mild); I50.9 Heart failure, unspecified
CPT/HCPCS: 71046; 76705; 80053; 83690; 84484; 84702; 85025; 93005; 93010; 99284-25; A9270

== ENCOUNTER 2025-03-26 12:49 | Inpatient (IN) | payer OTHER ==
[~2025-03-26] VITALS: Ht 165.1 cm; Wt 82.4 kg
[~2025-03-26 12:49] MED LIST changes: +ASPERFLEX1 EACH TOP
[2025-03-26 13:19] LABS: BASOPHILS ABSOLUTE AUTO 0.07 K/mm3 (0.00-0.23); BASOPHILS PERCENT AUTO 1 % (0-2); EOSINOPHILS ABSOLUTE AUTO 0.06 K/mm3 (0.00-0.68); EOSINOPHILS PERCENT AUTO 1 % (0-6); Hematocrit 51.3 % (33.0-51.0); Hemoglobin 17.6 g/dL (11.5-16.0); IMMATURE GRAN ABSOLUTE AUTO 0.08 K/mm3 (0.00-0.10); IMMATURE GRAN PERCENT AUTO 1 % (0-1); LYMPHOCYTES ABSOLUTE AUTO 2.05 K/mm3 (0.84-5.20); LYMPHOCYTES PERCENT AUTO 17 % (21-46); MONOCYTES ABSOLUTE AUTO 1.12 K/mm3 (0.16-1.47); MONOCYTES PERCENT AUTO 9 % (4-13); Mean Corpuscular HGB Conc 34.3 g/dL (31.5-36.5); Mean Corpuscular Volume 95 fL (80-100); NEUTROPHILS ABSOLUTE AUTO 8.99 K/mm3 (1.96-9.15); NEUTROPHILS PERCENT AUTO 73 % (41-73); NRBC ABSOLUTE 0.04 K/mm3 (0.00-0.02); NRBC Auto 0.3 /100 WBC (0.0-0.2); RDW Coefficient Variation 14.6 % (11.7-14.2); RDW Standard Deviation 49.9 fL (35.1-46.3)
[2025-03-26 14:12] LABS: Alanine Aminotransfer (ALT/SGP 74.0 U/L (12-78); Albumin, Blood 2.9 g/dL (3.4-5.0); Albumin/Globulin Ratio 0.7 (0.8-1.8); Anion Gap 10.0 mmol/L (3-11); Aspartate Aminotrans (AST/SGOT 65.0 U/L (12-37); Bilirubin, Total 1.7 mg/dL (0.1-1.0); Blood Urea Nitrogen 25.0 mg/dL (8-24); CO2, Blood 20.0 mmol/L (21-32); Calcium, Blood 8.9 mg/dL (8.5-10.1); Chloride, Blood 108.0 mmol/L (98-108); Creatinine, Blood 1.33 mg/dL (0.40-1.00); Globulin, Blood 4.1 g/dL (2.2-4.0); Glucose, Blood 101.0 mg/dL (70-99); Potassium, Blood 4.6 mmol/L (3.5-5.5); Sodium, Blood 133.0 mmol/L (136-145); Total Protein, Blood 7.0 g/dL (6.4-8.2)
[2025-03-26] MEDS ORDERED: Ondansetron HCl 2 MG / ML 2ML Vial IV ONE (15:25)
[2025-03-26] MEDS ORDERED: FentaNYL Citrate 50 MCG/ML 2 ML Injection IV ONE (15:25)
[2025-03-26] MEDS ORDERED: FLU VACC TS2025-26(6MOS UP)/PF 45 MCG/0.5 ML SYRINGE IM SCH (15:45)
[2025-03-26 16:05] LABS: CHOL/HDL RATIO 3.3; Cholesterol 93 mg/dL (50-200); HDL Cholesterol 28 mg/dL (>39); LDL/HDL RATIO 1.5; Low Density Lipoprotein Chol 42 mg/dL (0-110); Triglycerides 113 mg/dL (30-160); Very Low Density Lipoprot Chol 22 mg/dL (6-32)
[2025-03-26 16:11] LABS: Anti-Xa UFH, PHA Monitoring <0.10 IU/mL; Prothrombin Time Results 12.7 Sec (9.7-11.5)
[2025-03-26] MEDS ORDERED: LOSARTAN POTASS25 M2 PO (16:20)
[2025-03-26] MEDS ORDERED: FUROSEMIDE40 MG PO (16:20)
[2025-03-26] MEDS ORDERED: Heparin Sodium 5000 Units/ML 1ML MDV IV ONE (16:25)
[2025-03-26] MEDS ORDERED: Heparin Sodium,Porcine/0.5 NS 500 ML IV SCH (16:25)
--- NOTE | 2025-03-26 17:00 | NUR ---
ASSUMPTION OF CARE PATIENT IS ALERT AND ORIENTED, ABLE TO FOLLOW COMMANDS AND MAKE NEEDS KNOWN. PATIENT REPORTING RIGHT NECK PAIN AND CHEST DISCOMFORT. PATIENT DIAPHORETIC AND SHORT OF BREATH. SPO2>90% ON 4L, VSS.
[2025-03-26 17:02] VITALS: BP 125/88
[2025-03-26] MEDS ORDERED: Ondansetron HCl 2 MG / ML 2ML Vial IV PRN (17:55)
[2025-03-26] MEDS ORDERED: FentaNYL Citrate 50 MCG/ML 2 ML Injection IV PRN (18:35)
[2025-03-26 19:30] VITALS: BP 106/85
[2025-03-27] MEDS ORDERED: Clarify Drug Order XX ONE ×2 (00:55→06:15)
--- NOTE | 2025-03-27 01:04 | NUR ---
PATIENT RETING QUIETLY DENIES PAIN, STATES THE PAIN RADIATING TO NECK IS MUCH BETTER, NPO AT MIDNIGHT, VERBALIZES UNDERSTANDING, TROPONIN CONTINUES TO TREND DOWNARD AT 910 FOR MIDNIGHT DRAW, AANTI XA 0.49, CONTINUE HEPARIN GTT AT CURRENT RATE OF 20.4. WILL CONTINUE TO MONITOR
[2025-03-27 03:52] VITALS: BP 100/74
--- NOTE | 2025-03-27 03:59 | NUR ---
PATIENT ALERT AND ORIENTED, FLAT AFFECT BUT DOES ANSWER QUESTIONS APPROPRIATELY, LUNGS CLEAR, UP TO BATHROOM WITH STAND BY ASSIST, VOIDING YELLOW URINE, DENIES NAUSEA, NPO AFTER MIDNIGHT FOR ANGIOGRAM IN AM, HEPARIN DRIP INFUSING PER PROTOCOL, ANTI Xa MONITORED, TROPONINS CONTINUE TO TREND DOWN, EDUCATED PATHOLOGY LABORATORY DIRECTOR SYSTEM, VERBALIZES UNDERSTANDING, BED IN LOW AND LOCKED POSITON WILL CONTINUE TO MONITOR
[2025-03-27 05:56] LABS: BASOPHILS ABSOLUTE AUTO 0.05 K/mm3 (0.00-0.23); BASOPHILS PERCENT AUTO 1 % (0-2); EOSINOPHILS ABSOLUTE AUTO 0.06 K/mm3 (0.00-0.68); EOSINOPHILS PERCENT AUTO 1 % (0-6); Hematocrit 45.8 % (33.0-51.0); Hemoglobin 15.5 g/dL (11.5-16.0); IMMATURE GRAN ABSOLUTE AUTO 0.03 K/mm3 (0.00-0.10); IMMATURE GRAN PERCENT AUTO 0 % (0-1); LYMPHOCYTES ABSOLUTE AUTO 3.37 K/mm3 (0.84-5.20); LYMPHOCYTES PERCENT AUTO 32 % (21-46); MONOCYTES ABSOLUTE AUTO 1.19 K/mm3 (0.16-1.47); MONOCYTES PERCENT AUTO 11 % (4-13); Mean Corpuscular HGB Conc 33.8 g/dL (31.5-36.5); Mean Corpuscular Volume 94 fL (80-100); NEUTROPHILS ABSOLUTE AUTO 5.82 K/mm3 (1.96-9.15); NEUTROPHILS PERCENT AUTO 55 % (41-73); NRBC ABSOLUTE 0.00 K/mm3 (0.00-0.02); NRBC Auto 0.0 /100 WBC (0.0-0.2); Platelet Count 114 K/mm3 (150-400); RDW Coefficient Variation 14.2 % (11.7-14.2); RDW Standard Deviation 48.8 fL (35.1-46.3)
[2025-03-27 06:19] LABS: Anion Gap 11.0 mmol/L (3-11); Blood Urea Nitrogen 31.0 mg/dL (8-24); CO2, Blood 19.0 mmol/L (21-32); Calcium, Blood 8.6 mg/dL (8.5-10.1); Chloride, Blood 106.0 mmol/L (98-108); Creatinine, Blood 1.31 mg/dL (0.40-1.00); Glucose, Blood 106.0 mg/dL (70-99); Potassium, Blood 4.4 mmol/L (3.5-5.5); Sodium, Blood 132.0 mmol/L (136-145)
[2025-03-27 08:01] VITALS: BP 130/60
[2025-03-27] MEDS ORDERED: Potassium Chloride 10 Meq Tablet SA PO SCH (09:00)
[2025-03-27 11:45] VITALS: BP 90/66
[2025-03-27 16:23] VITALS: BP 100/87
[2025-03-27 20:23] VITALS: BP 96/71
--- NOTE | 2025-03-27 23:39 | NUR ---
ASSUMPTION OF CARE: THIS RN TO ASSUME CARE OF PT 1900. PT SLEEPING AND EASILY AROUSABLE. DENIES ANY NEEDS OR COMPLAINTS AT THIS TIME. FAMILY AT BEDSIDE. ON 2L NC O2 SATS <95%. CALL LIGHT IN REACH.
[2025-03-27 23:48] VITALS: BP 103/84
[2025-03-28 04:17] VITALS: BP 118/87
[2025-03-28 04:23] LABS: Source, Urine Clean Catch
[2025-03-28 04:28] LABS: Bilirubin, Urine Neg (Neg); Glucose Qualitative, Urine 4+ (Neg); Ketones, Urine Neg (Neg); Leukocyte Esterase, Urine 3+ (Neg); Protein, Urine 2+ (Neg); Specific Gravity, Urine 1.015 (1.003-1.022); Urobilinogen, Urine 1+ (Normal)
[2025-03-28 04:29] LABS: BASOPHILS ABSOLUTE AUTO 0.04 K/mm3 (0.00-0.23); BASOPHILS PERCENT AUTO 0 % (0-2); EOSINOPHILS ABSOLUTE AUTO 0.16 K/mm3 (0.00-0.68); EOSINOPHILS PERCENT AUTO 2 % (0-6); Hematocrit 48.2 % (33.0-51.0); Hemoglobin 16.3 g/dL (11.5-16.0); IMMATURE GRAN ABSOLUTE AUTO 0.02 K/mm3 (0.00-0.10); IMMATURE GRAN PERCENT AUTO 0 % (0-1); LYMPHOCYTES ABSOLUTE AUTO 2.46 K/mm3 (0.84-5.20); LYMPHOCYTES PERCENT AUTO 25 % (21-46); MONOCYTES ABSOLUTE AUTO 1.16 K/mm3 (0.16-1.47); MONOCYTES PERCENT AUTO 12 % (4-13); Mean Corpuscular HGB Conc 33.8 g/dL (31.5-36.5); Mean Corpuscular Volume 93 fL (80-100); NEUTROPHILS ABSOLUTE AUTO 5.95 K/mm3 (1.96-9.15); NEUTROPHILS PERCENT AUTO 61 % (41-73); NRBC ABSOLUTE 0.00 K/mm3 (0.00-0.02); NRBC Auto 0.0 /100 WBC (0.0-0.2); Platelet Count 131 K/mm3 (150-400); RDW Coefficient Variation 14.2 % (11.7-14.2); RDW Standard Deviation 48.3 fL (35.1-46.3)
[2025-03-28 04:43] LABS: Anion Gap 9.0 mmol/L (3-11); Blood Urea Nitrogen 36.0 mg/dL (8-24); CO2, Blood 25.0 mmol/L (21-32); Calcium, Blood 8.2 mg/dL (8.5-10.1); Chloride, Blood 106.0 mmol/L (98-108); Creatinine, Blood 1.2 mg/dL (0.40-1.00); Glucose, Blood 116.0 mg/dL (70-99); Potassium, Blood 3.8 mmol/L (3.5-5.5); Sodium, Blood 136.0 mmol/L (136-145)
[2025-03-28 04:49] LABS: U Amphetamine Screen DETECTED; U Barbiturate Screen Not Detected; U Benzodiazapine Screen Not Detected; U Buprenorphine Screen Not Detected; U Cannabinoids Screen Not Detected; U Cocaine Screen Not Detected; U Methadone Screen Not Detected; U Methamphetamine Screen DETECTED; U Opiates Screen DETECTED; U Oxycodone Screen Not Detected; U Phencyclidine Screen Not Detected
[2025-03-28 04:54] LABS: Color, Urine Yellow (P-Yellow)
[2025-03-28 04:55] LABS: White Blood Cells, Urine TNTC /hpf (0-5)
--- NOTE | 2025-03-28 05:04 | NUR ---
SHIFT SUMMARY: PT A&OX4. CALLS APPROPRIATELY AND MAKES NEEDS KNOWN TO STAFF. PT GOT UP TO THE BATHROOM A FEW TIMES OTHERWISE HAS SLEPT FOR A MAJORITY OF THE SHIFT. PT HAD A SLEEP OXIMITRY TEST WELL. REPORTED BURNING WITH URINATION AND URGENCY. THIS WAS DISCUSSED WITH PROVIDER AND A URINE WAS COLLECTED AND SENT TO LAB. DENIES ANY COMPLAINTS OF CP, PRESSURE, TIGHTNESS OR SOB OUTSIDE HER NORMAL. NO SIGNIFICANT EVENTS HAPPENED DURING THIS SHIFT. WILL CONTINUE TO CARE FOR PT TILL END OF SHIFT.
[2025-03-28 08:09] VITALS: BP 115/87
[2025-03-28] MEDS ORDERED: CefTRIAXone Sodium 1,000 MG in NS 100 ML IV ONE (11:15)
[2025-03-28 11:20] VITALS: BP 115/85
[2025-03-28] MEDS ORDERED: VISBIOME 112.51 EACH PO (12:56)
[2025-03-28] MEDS ORDERED: CEPH500 PO (12:58)
--- NOTE | 2025-03-28 13:30 | NUR ---
PT SUMMARY: PT WAS COOPERATIVE, ALERT, ORIENTED AND ABLE TO VERBALIZE HER NEEDS. PT ABLE TO TOLERATE HER MEDICATIONS AND DIET. PT WAS SCHEDULED FOR DISCHARGE. DISCHARGE ORDERS WERE PROCESSED AND WERE DISCUSSED TO THE PT. IV LINE REMOVED AND INSTRUCTED PT TO KEEP THE [place] WRAP FOR 15-20 MINUTES. PT WAS ACCOMPANIED BY HER SIGNIFICANT OTHER.
== END 2025-03-28 15:01 | disposition home or self-care (01) | DRG 280 ==
LOC: ER 12:49 → PCU 15:39
PROVIDERS: Physician Assistant; ADMIT Family Medicine
PROC: B24BZZZ Ultrasonography of Heart with Aorta (ICD-10-PCS; principal; 2025-03-27)
DX: I13.0 Hypertensive heart and chronic kidney disease with heart failure and stage 1 through stage 4 chronic kidney disease, or unspecified chronic kidney disease (principal); I50.23 Acute on chronic systolic (congestive) heart failure; I21.A1 Myocardial infarction type 2; J96.01 Acute respiratory failure with hypoxia; E87.1 Hypo-osmolality and hyponatremia; N39.0 Urinary tract infection, site not specified; I27.21 Secondary pulmonary arterial hypertension; I50.812 Chronic right heart failure; I36.1 Nonrheumatic tricuspid (valve) insufficiency; F15.10 Other stimulant abuse, uncomplicated; I27.81 Cor pulmonale (chronic); N18.30 Chronic kidney disease, stage 3 unspecified; D69.6 Thrombocytopenia, unspecified; Z79.84 Long term (current) use of oral hypoglycemic drugs; Z79.899 Other long term (current) drug therapy
CPT/HCPCS: 36415; 71046; 80048; 80053; 80061; 81001; 83690; 83880; 84484; 85025; 85520; 85610; 85730; 87077; 87086; 87186; 93005; 93010; 93306; 94762; 96374; 96375; 99285-25; A9270; J0696; J1644; J1938; J2405; J3010